=== PATIENT | female | born 1955 | race Caucasian/White ===

== ENCOUNTER → 2016-09-05 | Outpatient (CLI) | payer BC | END | disposition home or self-care (01) | LOC: GMAM 15:12 | PROVIDERS: ATTEND Family Medicine | DX: E03.9 Hypothyroidism, unspecified (principal) ==

== ENCOUNTER → 2017-03-27 | Outpatient (CLI) | payer BC | END | disposition home or self-care (01) | LOC: GMAM 16:43 | PROVIDERS: ATTEND Family Medicine | DX: E03.9 Hypothyroidism, unspecified (principal) ==

== ENCOUNTER → 2017-04-21 | Outpatient (CLI) | payer BC ==
--- NOTE | 2017-04-22 11:39 | MAM ---
EXAM DESCRIPTION: 3D Screening BILATERAL CLINICAL HISTORY: 61 yearsFemaleSCREENING . No complaints. No family history of breast cancer. Postmenopausal. No HRT. COMPARISON: 2-D digital screening bilateral studies 08/02/2013 and 05/28/2012. No prior reports available. TECHNIQUE: Bilateral CC and MLO projection full-field images, 3-D tomosynthesis digital mammographic technique. Also bilateral synthesized CC/ MLO full-field images. CAD not utilized. FINDINGS: The breast parenchymal density pattern is: Scattered areas of fibroglandular density. No skin thickening or nipple retraction bilateral axillary lymph nodes. Bilateral intramammary lymph nodes. Solitary calcifications bilaterally. Skin calcifications on the right breast. No focal, stellate mass or density, focal asymmetry , and no suspicious microcalcifications bilaterally. Stable mammograms compared to prior study ((May 2012), taking into account differences in mammographic technique IMPRESSION: BI-RADS CATEGORY: 2 - BENIGN FINDINGS. FOLLOW UP: Routine digital bilateral screening, one year interval from April 2017. Written communication explaining the IMPRESSION and follow-up, will be mailed to the patient and referring health care provider. According to the [employer], yearly mammograms are recommended starting at age 40 and continuing as long as a woman is in good health. Any breast change noted on a breast self-exam should be reported promptly to the patient's healthcare provider. Breast MRI is recommended for women with an approximately 20-25% or greater lifetime risk of breast cancer, including women with a strong family history of breast or ovarian cancer and women who have been treated for Hodgkin's disease. A negative mammographic report should not delay tissue diagnosis in patients with significant clinical history or physical findings. Extremely dense breast tissue limits the sensitivity of digital mammography. Electronically signed by: Lisandro Smalls MD 04/22/2017 11:37 AM CDT
== END | disposition home or self-care (01) ==
LOC: US 16:43
PROVIDERS: ATTEND Family Medicine
DX: Z12.31 Encounter for screening mammogram for malignant neoplasm of breast (principal)
CPT/HCPCS: 77063; G0202

== ENCOUNTER → 2017-07-09 | Outpatient (CLI) | payer BC | END | disposition home or self-care (01) | LOC: GMAM 10:45 | PROVIDERS: ATTEND Family Medicine | DX: E03.9 Hypothyroidism, unspecified (principal) ==

== ENCOUNTER → 2017-10-24 | Outpatient (CLI) | payer BC | LOC: GMAM 11:54 | PROVIDERS: ATTEND Family Medicine | DX: E03.9 Hypothyroidism, unspecified (principal) ==

== ENCOUNTER → 2018-05-04 | Outpatient (CLI) | payer BC | LOC: GMAM 11:05 | PROVIDERS: ATTEND Family Medicine | DX: E03.9 Hypothyroidism, unspecified (principal); E83.52 Hypercalcemia; E11.9 Type 2 diabetes mellitus without complications; I10 Essential (primary) hypertension ==

== ENCOUNTER → 2018-06-03 | Outpatient (CLI) | payer BC ==
--- NOTE | 2018-06-08 10:56 | MAM ---
EXAM DESCRIPTION: 3D Screening BILATERAL : Digital Mammography. CLINICAL HISTORY: 62 years Female SCREENING . No complaints. No personal or family history of breast cancer. Childbirth. Postmenopausal 10 years. No HRT. Lifetime risk of developing breast cancer (Tyrer-Cuzick model)(%): 9.7. COMPARISON: Bilateral screening digital breast tomosynthesis 04/21/2017. TECHNIQUE: Bilateral CC and MLO projection full-field images, digital tomosynthesis mammographic technique. Bilateral digital 2-D full-field MLO images. CAD not available for tomosynthesis or 2-D images. FINDINGS: The breast parenchymal density pattern is: Scattered areas of fibroglandular density. No skin thickening or nipple retraction. Right axillary lymph nodes. Bilateral solitary microcalcifications. No new focal, stellate mass or density, focal asymmetry , and no suspicious microcalcifications bilaterally. Stable mammograms compared to prior study. IMPRESSION: Benign exam. BIRAD CATEGORY: 2 BENIGN FINDINGS. RECOMMENDATIONS: FOLLOW UP: Routine digital bilateral mammographic screening, one year interval from May 2018. Written communication explaining the IMPRESSION and follow-up, will be mailed to the patient and referring health care provider. According to the [employer], yearly mammograms are recommended starting at age 40 and continuing as long as a woman is in good health. Any breast change noted on a breast self-exam should be reported promptly to the patient's healthcare provider. Breast MRI is recommended for women with an approximately 20-25% or greater lifetime risk of breast cancer, including women with a strong family history of breast or ovarian cancer and women who have been treated for Hodgkin's disease. A negative mammographic report should not delay tissue diagnosis in patients with significant clinical history or physical findings. Extremely dense breast tissue limits the sensitivity of digital mammography. Electronically signed by: Lisandro Smalls MD 06/08/2018 10:55 AM NEUROSCIENCE DIRECTOR NA
== END ==
LOC: MAMMO 09:30
PROVIDERS: ATTEND Family Medicine
DX: Z12.31 Encounter for screening mammogram for malignant neoplasm of breast (principal)

== ENCOUNTER → 2019-02-12 | Outpatient (CLI) | payer BC | LOC: GMAM 12:37 | PROVIDERS: ATTEND Family Medicine | DX: E03.9 Hypothyroidism, unspecified (principal); E11.9 Type 2 diabetes mellitus without complications; I10 Essential (primary) hypertension ==

== ENCOUNTER → 2019-06-07 | Outpatient (CLI) | payer BC ==
--- NOTE | 2019-06-08 08:44 | MAM ---
EXAM DESCRIPTION: 3D Screening BILATERAL : Digital Mammography. CLINICAL HISTORY: 63 years Female ANNUAL SCREENING . No complaints. No personal or family history of breast cancer. Menarche age 14. Childbirth age 33. Menopausal age 51. No HRT. Lifetime risk of developing breast cancer (Tyrer-Cuzick model)(%): 9.4. COMPARISON: Bilateral screening digital breast tomosynthesis May and 21 April 2017.. TECHNIQUE: Bilateral CC and MLO projection full-field images, digital tomosynthesis mammographic technique. Bilateral digital 2-D full-field MLO images. CAD not available for tomosynthesis or 2-D images. FINDINGS: The breast parenchymal density pattern is: Scattered areas of fibroglandular density. No skin thickening or nipple retraction. Bilateral solitary microcalcifications. Bilateral axillary lymph nodes. Stable nodule anterior inferior right breast at 6:00. Increased retroareolar density right breast since the prior study.. No new focal, stellate mass or density, focal asymmetry , and no suspicious microcalcifications left breast. IMPRESSION: BI-RADS CATEGORY: 0 - INCOMPLETE- Need additional imaging evaluation. FOLLOW-UP: Recall for additional imaging: Directed right breast ultrasound of the region of interest. Written communication concerning the IMPRESSION and Follow-up, will be mailed to the patient and referring health care provider. Electronically signed by: Lisandro Smalls MD 06/08/2019 8:42 AM CHIEF SCIENTIFIC OFFICER
== END ==
LOC: MAMMO 10:28
PROVIDERS: ATTEND Family Medicine
DX: Z12.31 Encounter for screening mammogram for malignant neoplasm of breast (principal)

== ENCOUNTER → 2019-06-28 | Outpatient (CLI) | payer BC ==
--- NOTE | 2019-06-30 09:49 | US ---
EXAM DESCRIPTION: Breast,Right: Ultrasound. CLINICAL HISTORY: 63 yearsFemaleABNORMAL MAMMO . Focal asymmetry or mass density retroareolar right breast. COMPARISON: Bilateral screening digital breast tomosynthesis 07 June 2019. TECHNIQUE: Transcutaneous scanning of the right breast utilizing jara-scale and Doppler modes. Scanning performed by the telecommunications line mechanic and Dr. Smalls. FINDINGS: Scanning retroareolar right breast. Heterogeneous fibroglandular tissues and fatty tissues. Irregular fluid-containing tissue retroareolar. Also hypoechoic tissue. The fluid-containing tissue demonstrates posterior acoustic enhancement. Wider than tall orientation dimensions 7.2 x 4.1 mm. Hypoechoic tissue is wider than tall orientation with posterior acoustic shadowing. 6.5 x 3.2 mm. Dilated ducts are also noted. Nonvascular. No dominant solid mass, distinct cyst, or large calcifications. IMPRESSION: Probable dilated ducts and possible lymph nodes retroareolar right breast. BI-RADS CATEGORY: 3 - PROBABLY BENIGN. Management: Short interval (6-month) diagnostic right breast digital tomosynthesis and directed right breast ultrasound.. The FINDINGS and the FOLLOW-UP plan were reviewed in person with the patient after the examination. Written communication explaining the IMPRESSION and FOLLOW-UP will be mailed to the patient and referring care provider.. Electronically signed by: Lisandro Smalls MD 06/30/2019 9:47 AM SAMPLE EXAMINER
== END ==
LOC: MAMMO 15:37
PROVIDERS: ATTEND Family Medicine
DX: R92.2 Inconclusive mammogram (principal)

== ENCOUNTER 2019-08-12 13:05 | Emergency (ER) | payer BC, OTHER ==
[2019-08-12 13:32] VITALS: TEMP 98.8; O2SAT 98
--- NOTE | 2019-08-12 14:07 | RAD ---
EXAM DESCRIPTION: Wrist,Right 3 Views CLINICAL HISTORY: 64 years Female, fall with right wrist pain. COMPARISON: None. TECHNIQUE: 3 view radiograph of the right wrist. IMPRESSION: Indeterminate oblique fracture through the lateral corner of the distal radius with intra-articular extension into the radiocarpal joint space. There is 1-2 mm radial displacement of the distal fracture fragment. Correlate with point tenderness at this site. There is abnormal widening of the scapholunate interval. Neutral ulnar variance. Mild soft tissue swelling about the wrist. No radiopaque foreign body or soft tissue defect. Electronically signed by: Orlando Gonzalez MD 08/12/2019 2:06 PM [facility]
--- NOTE | 2019-08-12 14:09 | CT ---
EXAM DESCRIPTION: Cervical Spine CLINICAL HISTORY: fall with c/o ECKERT and neck pain. COMPARISON: None available. TECHNIQUE: Axial noncontast CT of the cervical spine with coronal and sagittal reformats. This exam was performed according to our departmental dose-optimization program, which includes automated exposure control, adjustment of the mA and/or kV according to patient size and/or use of iterative reconstruction technique. FINDINGS: Cervical vertebral body heights are maintained. Straightening of the normal cervical lordosis. Patient's head is leaning towards the left. No acute fracture or posttraumatic positional abnormality of the cervical spine is seen. Moderate disc space narrowing with ventral ridging disc osteophyte complexes from C4 through C7 contributes to mild spinal canal stenosis. Uncovertebral joint hypertrophy is seen from C4 through C7 resulting in moderate left C5-6 and mild left C4-5 foraminal encroachment. Mild facet arthrosis is seen. The C1-2 relationship is maintained. Visualized lung apices show no acute findings. No pathologic lymphadenopathy. IMPRESSION: No CT evidence of acute fracture or posttraumatic positional abnormality of the cervical spine. Moderate disc degenerative changes of the cervical spine from C4 through C7 contributes to mainly left foraminal encroachment at C4-5 and C5-6. Nonspecific straightening of the normal cervical lordosis could be secondary to patient positioning or muscle spasm. Electronically signed by: Marshall Loza MD 08/12/2019 2:07 PM [facility]
--- NOTE | 2019-08-12 14:13 | CT ---
EXAM DESCRIPTION: Head CLINICAL HISTORY: fall with head trauma, HAand on blood thinners COMPARISON: None TECHNIQUE: Noncontrast transaxial CT images of the head are obtained from base to vertex. This exam was performed according to our departmental dose-optimization program, which includes automated exposure control, adjustment of the mA and/or kV according to patient size and/or use of iterative reconstruction technique. FINDINGS: The midline structures are not displaced. The sulci are age appropriate. The lateral, third, and fourth ventricles are normal in size, shape, and anatomic positioning. There is no evidence of mass, mass effect, hydrocephalus, or acute intracranial hemorrhage. No abnormal extra axial fluid collections are seen. Normal jara-white differentiation is seen. The visualized bone windows show no depressed skull fracture or significant abnormality. Mild right high parietal scalp soft tissue thickening and increased attenuation measuring 11 mm AP by 3.5 cm transverse. Moderate calcifications of the intracranial carotid arteries are seen. The visualized paranasal sinuses show mild mucosal thickening of the ethmoid air cells. The mastoid air cells are unremarkable.. IMPRESSION: 1. No acute intracranial abnormality is seen on noncontrast CT of the head. 2. Right superior scalp soft tissue swelling and hematoma is seen. Electronically signed by: Marshall Loza MD 08/12/2019 2:11 PM BIG DATA DEVELOPER
--- NOTE | 2019-08-12 14:27 | ED.PDOC ---
History of Present Illness - General Chief Complaint: Trauma Stated Complaint: fall, right wrist and head pain Time Seen by Provider: 08/12/19 13:21 Source: patient, RN notes reviewed, Vital Signs reviewed, family - Exam Limitations: no limitations - History of Present Illness Initial Comments: Patient is a 64-year-old white female who presents status post trip and fall at work. Patient caught her right foot on the rug and caused her to tumble over and fall against a cement wall and hit her right wrist, right head and neck. Patient complains of head neck and right wrist pain. It is moderate in intensity. It is throbbing and stabbing. It is constant and worsening. It is made worse with by palpation or movement. Slight improvement of the pain with rest or ice. There was no loss of consciousness. Patient is on an aspirin a day. Occurred: just prior to arrival Severity: moderate Method of Injury: fall Improving Factors: cold therapy, immobilization, rest Worsening Factors: movement Loss of Consciousness: no loss of consciousness Associated Symptoms (Fall): headache, neck pain Home Medications: Ambulatory Orders Tramadol HCl 50 mg PO Q6H #20 tab 08/12/19 Review of Systems - Review of Systems Constitutional: States: no symptoms reported, see HPI EENTM: States: no symptoms reported Respiratory: States: no symptoms reported. Denies: cough, short of breath Cardiology: States: no symptoms reported. Denies: chest pain, palpitations, syncope Gastrointestinal/Abdominal: Denies: abdominal pain, nausea, vomiting Genitourinary: States: no symptoms reported. Denies: dysuria, frequency Musculoskeletal: States: see HPI, neck pain Skin: States: no symptoms reported Neurological: States: see HPI, headache. Denies: numbness, paresthesia, tingling, weakness Endocrine: States: no symptoms reported Hematologic/Lymphatic: States: no symptoms reported All other Systems: Reviewed and Negative Past Medical History (General) - Patient Medical History Hx Hypertension: Yes Hx Diabetes: Yes Hx Cancer: No Hx Hepatitis C: No Surgical History: cholecystectomy, Hysterectomy - Vaccination History Hx Tetanus, Diphtheria Vaccination: No Hx Influenza Vaccination: Yes Hx Pneumococcal Vaccination: No - Social History Hx Tobacco Use: No Hx Alcohol Use: No Hx Substance Use: No Hx Depression: No Family Medical History - Family History Mother Hx Family Diabetes: Yes Physical Exam - Physical Exam General Appearance: Alert, Comfortable, Well Developed, Well Groomed, Well Hydrated Head Injury: contusions - Right posterior occiput. No laceration., swelling - Right posterior occiput. No underlying crepitus or step-offs. 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 08/12/19 14:33 CTs and x-rays were reviewed. CT of the head and neck do not show any acute fractures. X-ray of the right wrist does show a distal radius fracture that appears intra-articular. Plan on placement is sugar tong splint and discharge home with follow-up with orthopedics. I have discussed the plan of care with the patient and her and they voiced understanding and agreement. Additionally, I will send her home with a prescription for Ultram. Reuben Blair M.D. #[id number] - Results/Orders Results/Orders: EXAM DESCRIPTION: Head CLINICAL HISTORY: fall with head trauma, HAand on blood thinners COMPARISON: None TECHNIQUE: Noncontrast transaxial CT images of the head are obtained from base to vertex. This exam was performed according to our departmental dose- optimization program, which includes automated exposure control, adjustment of the mA and/or kV according to patient size and/or use of iterative reconstruction technique. FINDINGS: The midline structures are not displaced. The sulci are age appropriate. The lateral, third, and fourth ventricles are normal in size, shape, and anatomic positioning. There is no evidence of mass, mass effect, hydrocephalus, or acute intracranial hemorrhage. No abnormal extra axial fluid collections are seen. Normal jara-white differentiation is seen. The visualized bone windows show no depressed skull fracture or significant abnormality. Mild right high parietal scalp soft tissue thickening and increased attenuation measuring 11 mm AP by 3.5 cm transverse. Moderate calcifications of the intracranial carotid arteries are seen. The visualized paranasal sinuses show mild mucosal thickening of the ethmoid air cells. The mastoid air cells are unremarkable.. IMPRESSION: 1. No acute intracranial abnormality is seen on noncontrast CT of the head. 2. Right superior scalp soft tissue swelling and hematoma is seen. Electronically signed by: Marshall Loza MD 08/12/2019 2:11 PM APPLICATION SECURITY CONSULTANT EXAM DESCRIPTION: CT Cervical Spine CLINICAL HISTORY: fall with c/o ECKERT and neck pain. COMPARISON: None available. TECHNIQUE: Axial noncontast CT of the cervical spine with coronal and sagittal reformats. This exam was performed according to our departmental dose- optimization program, which includes automated exposure control, adjustment of the mA and/or kV according to patient size and/or use of iterative reconstruction technique. FINDINGS: Cervical vertebral body heights are maintained. Straightening of the normal cervical lordosis. Patient's head is leaning towards the left. No acute fracture or posttraumatic positional abnormality of the cervical spine is seen. Moderate disc space narrowing with ventral ridging disc osteophyte complexes from C4 through C7 contributes to mild spinal canal stenosis. Uncovertebral joint hypertrophy is seen from C4 through C7 resulting in moderate left C5-6 and mild left C4-5 foraminal encroachment. Mild facet arthrosis is seen. The C1-2 relationship is maintained. Visualized lung apices show no acute findings. No pathologic lymphadenopathy. IMPRESSION: No CT evidence of acute fracture or posttraumatic positional abnormality of the cervical spine. Moderate disc degenerative changes of the cervical spine from C4 through C7 contributes to mainly left foraminal encroachment at C4-5 and C5-6. Nonspecific straightening of the normal cervical lordosis could be secondary to patient positioning or muscle spasm. Electronically signed by: Marshall Loza MD 08/12/2019 2:07 PM APPLICATION SECURITY CONSULTANT EXAM DESCRIPTION: Wrist,Right 3 Views CLINICAL HISTORY: 64 years Female, fall with right wrist pain. COMPARISON: None. TECHNIQUE: 3 view radiograph of the right wrist. IMPRESSION: Indeterminate oblique fracture through the lateral corner of the distal radius with intra-articular extension into the radiocarpal joint space. There is 1-2 mm radial displacement of the distal fracture fragment. Correlate with point tenderness at this site. There is abnormal widening of the scapholunate interval. Neutral ulnar variance. Mild soft tissue swelling about the wrist. No radiopaque foreign body or soft tissue defect. Electronically signed by: Orlando Gonzalez MD 08/12/2019 2:06 PM APPLICATION SECURITY CONSULTANT - EKG/XRAY/CT CT Ordered: Yes Departure - Departure Clinical Impression: Fall Qualifiers: Encounter type: initial encounter Qualified Code(s): W19.XXXA - Unspecified fall, initial encounter Closed fracture of right distal radius Qualifiers: Encounter type: initial encounter Fracture morphology: other intra-articular Qualified Code(s): S52.571A - Other intraarticular fracture of lower end of right radius, initial encounter for closed fracture Head contusion Qualifiers: Encounter type: initial encounter Contusion of head detail: scalp Qualified Code(s): S00.03XA - Contusion of scalp, initial encounter Time of Disposition: 14:35 Disposition: Discharge to Home or Self Care Condition: Good Departure Forms: ED Discharge - Pt. Copy, Patient Portal Self Enrollment Instructions: DI for Trauma, Wrist Fracture (DC), Minor Head Injury (DC) Referrals: Axel Mirza MD [Primary Care Provider] - 1-2 Weeks Paul Stoddard MD [Active Staff] - 1-5 Days Prescriptions: Tramadol HCl 50 mg PO Q6H #20 tab Home Medications: Ambulatory Orders Tramadol HCl 50 mg PO Q6H #20 tab 08/12/19
[2019-08-12 15:36] VITALS: BP 144/89
== END 2019-08-12 15:15 | disposition home or self-care (01) ==
LOC: ER 13:05
DX: S00.03XA Contusion of scalp, initial encounter (principal); S52.571A Other intraarticular fracture of lower end of right radius, initial encounter for closed fracture; M54.2 Cervicalgia; M50.323 Other cervical disc degeneration at C6-C7 level; I10 Essential (primary) hypertension; E11.9 Type 2 diabetes mellitus without complications; W01.0XXA Fall on same level from slipping, tripping and stumbling without subsequent striking against object, initial encounter; Y99.0 Civilian activity done for income or pay; Y92.69 Other specified industrial and construction area as the place of occurrence of the external cause

== ENCOUNTER → 2020-03-08 | Outpatient (CLI) | payer BC | END | disposition home or self-care (01) | LOC: GMAM 10:24 | PROVIDERS: ATTEND Family Medicine | DX: E03.9 Hypothyroidism, unspecified (principal) ==

== ENCOUNTER → 2020-07-11 | Outpatient (CLI) | payer BC | LOC: GMAM 12:47 | PROVIDERS: ATTEND Family Medicine | DX: I10 Essential (primary) hypertension (principal); E11.9 Type 2 diabetes mellitus without complications ==